=== PATIENT | male | born 1940 | race Caucasian/White ===

== ENCOUNTER 2017-02-27 05:37 | Inpatient (IN) | payer OTHER ==
[~2017-02-27] VITALS: Ht 175.3 cm; Wt 89.5 kg
[2017-02-27 07:46] VITALS: BP 130/77
[2017-02-27 07:56] VITALS: BP 130/77
[2017-02-27] MEDS ORDERED: OXYcodone IR 5MG TABLET PO PRN (10:00)
[2017-02-27] MEDS ORDERED: POLYETHYLENE GLYCOL 17 GM PACKET PO PRN (10:00)
[2017-02-27] MEDS ORDERED: ENALAPRILAT 1.25 MG/ML, 2ML IVPush PRN (10:00)
[2017-02-27] MEDS ORDERED: ACETAMINOPHEN 325 MG TABLET PO PRN (10:00)
[2017-02-27] MEDS ORDERED: ONDANSETRON 2MG/ML, 2ML IVP PRN (10:00)
[2017-02-27] MEDS ORDERED: FUROSEMIDE 20 MG/2 ML IV ONE (10:00)
[2017-02-27] MEDS ORDERED: BISACODYL 10 MG SUPP PR PRN (10:00)
[2017-02-27] MEDS ORDERED: MORPHINE SULFATE 4 MG/ML, 1ML IVPush PRN (10:00)
[2017-02-27] MEDS: PLEASE ENTER HEIGHT AND WEIGHT AND ALLERGIES MC SCH ×2 (11:23→15:58)
[2017-02-27] MEDS: DOXYCYCLINE 100MG TABLET PO SCH ×2 (12:31→20:36)
[2017-02-27] MEDS: CEFTRIAXONE PMX 1GM/50ML 50 ML IV SCH (12:44)
[2017-02-27] MEDS: HEPARIN 5,000 UNITS/ML, 1ML SQ SCH ×2 (13:15→19:00)
[2017-02-27 13:40] VITALS: BP 128/76
[2017-02-27 19:08] VITALS: BP 112/69
[2017-02-28] MEDS: CEFTRIAXONE PMX 1GM/50ML 50 ML IV SCH ×2 (00:06→14:03)
[2017-02-28 01:10] VITALS: BP 117/72
[2017-02-28] MEDS: PLEASE ENTER HEIGHT AND WEIGHT AND ALLERGIES MC SCH ×2 (02:30→10:30)
[2017-02-28] MEDS: HEPARIN 5,000 UNITS/ML, 1ML SQ SCH ×3 (03:00→19:00)
[2017-02-28 06:04] LABS: ASPARTATE AMINO TRANSFERASE 31 U/L (15-37); BLOOD UREA NITROGEN 20 mg/dL (7-18)
[2017-02-28 07:29] VITALS: BP 120/71
[2017-02-28] MEDS: DOXYCYCLINE 100MG TABLET PO SCH ×2 (08:02→19:55)
[2017-02-28] MEDS: SENNA/DOCUSATE TABLET PO SCH (08:02)
[2017-02-28] MEDS ORDERED: FUROSEMIDE 20 MG/2 ML IV ONE (09:30)
[2017-02-28 13:13] VITALS: BP 109/70
[2017-02-28] MEDS ORDERED: MAGNESIUM CITRATE 300ML ORAL SOL PO ONE (13:30)
[2017-02-28] MEDS: GUAIFENESIN ER 600 MG TABLET PO SCH ×2 (14:26→19:55)
[2017-02-28 19:15] VITALS: BP 131/76
[2017-03-01] MEDS: CEFTRIAXONE PMX 1GM/50ML 50 ML IV SCH ×2 (00:51→13:35)
[2017-03-01 02:00] VITALS: BP 117/67
[2017-03-01] MEDS: HEPARIN 5,000 UNITS/ML, 1ML SQ SCH ×3 (03:00→20:52)
[2017-03-01 06:38] VITALS: BP 118/72
[2017-03-01] MEDS: GUAIFENESIN ER 600 MG TABLET PO SCH ×2 (10:25→20:52)
[2017-03-01] MEDS: SENNA/DOCUSATE TABLET PO SCH (10:25)
[2017-03-01] MEDS: FUROSEMIDE 20 MG TABLET PO SCH (10:25)
[2017-03-01] MEDS: DOXYCYCLINE 100MG TABLET PO SCH ×2 (10:25→20:53)
[2017-03-01 12:21] VITALS: BP 120/74
[2017-03-01 19:34] VITALS: BP 110/64
[2017-03-02] MEDS: CEFTRIAXONE PMX 1GM/50ML 50 ML IV SCH ×2 (00:41→11:05)
[2017-03-02 02:40] VITALS: BP 121/74
[2017-03-02] MEDS: HEPARIN 5,000 UNITS/ML, 1ML SQ SCH ×2 (05:27→12:55)
[2017-03-02 06:34] VITALS: BP 118/72
[2017-03-02] MEDS: SENNA/DOCUSATE TABLET PO SCH (09:00)
[2017-03-02] MEDS: DOXYCYCLINE 100MG TABLET PO SCH (11:04)
[2017-03-02] MEDS: FUROSEMIDE 20 MG TABLET PO SCH (11:05)
[2017-03-02] MEDS: GUAIFENESIN ER 600 MG TABLET PO SCH (11:05)
[2017-03-02] MEDS ORDERED: ENALAPRILAT 1.25 MG/ML, 2ML IVPush PRN (12:09)
[2017-03-02] MEDS ORDERED: SODIUM CHLORIDE INHALATION 7%, 4 ML NPPB ONE (12:30)
[2017-03-02 12:32] VITALS: BP 118/78
[2017-03-02] MEDS ORDERED: CEFD300C37 PO (16:01)
[2017-03-02] MEDS ORDERED: DOXY100T PO (16:01)
[2017-03-02] MEDS ORDERED: LACT1CAP24 PO (16:01)
== END 2017-03-02 16:56 | disposition home or self-care (01) | DRG 871 ==
LOC: 3NE 07:32
PROVIDERS: ADMIT Family Medicine; ATTEND Internal Medicine
DX: A41.9 Sepsis, unspecified organism (principal); J18.9 Pneumonia, unspecified organism; J96.01 Acute respiratory failure with hypoxia; K40.20 Bilateral inguinal hernia, without obstruction or gangrene, not specified as recurrent; K59.00 Constipation, unspecified; K82.8 Other specified diseases of gallbladder; Z59.0 Homelessness; Z88.0 Allergy status to penicillin
CPT/HCPCS: 36415; 80053; 80061; 81001; 83036; 83605; 83735; 83880; 84439; 84443; 85025; 87040; 94640; J0696; J1644; J1940

== ENCOUNTER 2019-09-18 13:26 | Emergency (ER) ==
[~2019-09-18] VITALS: Ht 172.7 cm; Wt 77.2 kg
[~2019-09-18 13:26] MED LIST: CEFD300C37 PO; DOXY100T PO; LACT1CAP24 PO
--- NOTE | 2019-09-18 13:35 | NUR ---
Patient brought in by EMS reports Left flank pain that radiates up his back. Pain has got progressively worse. Painful urination with urgency. Denies any CP or difficulty breathing. at bedside.
[2019-09-18] MEDS ORDERED: OXYcodone/APAP 5/325MG TABLET PO ONE (14:00)
[2019-09-18] MEDS ORDERED: ONDANSETRON ODT 4 MG PO ONE (14:00)
[2019-09-18] MEDS ORDERED: KETOROLAC 30 MG/1 ML IM ONE (14:00)
[2019-09-18] MEDS ORDERED: ONDANSETRON ODT 4 MG ONE (14:17)
[2019-09-18] MEDS ORDERED: OXYcodone/APAP 5/325MG TABLET ONE (14:17)
[2019-09-18] MEDS ORDERED: KETOROLAC 60 MG/2 ML ONE (14:17)
--- NOTE | 2019-09-18 15:29 | NUR ---
Patient resting in bed. NAD noted. Provider at bedside discussing results.
--- NOTE | 2019-09-18 17:00 | NUR ---
Patient was being discharged and began complaining of Left sided pain with inspiration. Provider informed and orders received. Patient back in bed attached to monitors (Cardiac, O2 and BP). at bedside.
[2019-09-18 17:17] LABS: MEAN CORPUSCULAR HEMOGLOBIN 32.1 pg (27.5-34.5); MEAN CORPUSCULAR HGB CONC 33.3 g/dL (33.2-36.2); MEAN CORPUSCULAR VOLUME 96.6 fL (81-97); MEAN PLATELET VOLUME 8.9 fL (7.4-10.4); PLATELET COUNT 207 x10^3/uL (130-400); RED CELL DISTRIBUTION WIDTH 13.6 % (9.4-14.8)
[2019-09-18 17:27] LABS: ALBUMIN 3.5 g/dL (3.4-5.0); ANION GAP 8 mmol/L (5-15); CALCIUM 9.2 mg/dL (8.5-10.1); CHLORIDE 108 mmol/L (98-107); CREATININE 1.33 mg/dL (0.7-1.3)
[2019-09-18 17:30] LABS: TROPONIN I < 0.015 ng/mL (0.000-0.045)
[2019-09-18 17:34] LABS: BASOPHILS # (AUTO) 0.01 x10^3/uL (0-0.1); BASOPHILS % (AUTO) 0 % (0-1); EOSINOPHILS % (AUTO) 0 % (1-7); LYMPHOCYTES # (AUTO) 0.66 x10^3/uL (1-3.4); LYMPHOCYTES % (AUTO) 5 % (22-44); MD SCAN; MONOCYTES # (AUTO) 1.02 x10^3/uL (0.2-0.8); MONOCYTES % (AUTO) 7 % (2-9); NEUTROPHILS # (AUTO) 13.09 x10^3/uL (1.8-6.8); NEUTROPHILS % (AUTO) 89 % (42-75)
[2019-09-18 17:38] VITALS: BP 112/59
[2019-09-18] MEDS ORDERED: CEFTRIAXONE PMX 1GM/50ML 50 ML IVPB ONE (18:00)
[2019-09-18] MEDS ORDERED: DOXYCYCLINE 100MG TABLET ONE (18:15)
--- NOTE | 2019-09-18 18:23 | NUR ---
Patient resting in bed. NAD noted
[2019-09-18] MEDS ORDERED: DOXYCYCLINE 100MG TABLET PO ONE (18:30)
[2019-09-18] MEDS ORDERED: SODIUM CHLORIDE FLUSH 10ML SYR IVF ONE (18:30)
--- NOTE | 2019-09-18 18:41 | NUR ---
Patient discharged home, discharge instructions provided. All questions and concerns addressed. Ambulatory with slow steady gait. All pt belongings were with patient and he left with and son.
== END 2019-09-18 18:43 | disposition home or self-care (01) ==
LOC: ED 15:08
DX: J18.1 Lobar pneumonia, unspecified organism (principal); M51.34 Other intervertebral disc degeneration, thoracic region; Z87.891 Personal history of nicotine dependence
CPT/HCPCS: 36415; 71045; 72072; 72110; 80048; 82040; 84484; 85025; 93005; 96372; 99283; J1885; 99284

== ENCOUNTER 2021-05-15 11:23 | Emergency (ER) | payer OTHER ==
[~2021-05-15] VITALS: Ht 180.3 cm; Wt 70.0 kg
--- NOTE | 2021-05-15 11:32 | NUR ---
THIS IS A 81 YO M BIB EMS S/P [employer] PLACED PT ON HOLD FOR SI. PER EMS PT WAS SITTING ON THE SIDE OF THE ROAD TRYING TO GET OUT OF THE STREET AND CROSSING THE ROAD. PT DENIES SI/HI. DENIES DESIRE TO JUMP IN FRONT OF CAR. STATES "I WAS TRYING TO CROSS THE ROAD". PT CALM AND COOPERATIVE. VSS, TARIQ. AND LINETTE HARRISON AT BEDSIDE FOR EVAL.
--- NOTE | 2021-05-15 11:51 | NUR ---
MED DANETTE FROM PHARMACY.
[2021-05-15] MEDS ORDERED: TRIAMCINOLONE OINT 0.1%, 15GM TP ONE (12:00)
[2021-05-15] MEDS ORDERED: TRIAMCINOLONE CRM 0.1%, 15GM TP ONE (13:00)
--- NOTE | 2021-05-15 13:59 | NUR ---
pt still eating, will be dc after. as
[2021-05-15 14:24] VITALS: BP 141/71
== END 2021-05-15 14:26 | disposition home or self-care (01) ==
LOC: ED 11:54
DX: Z00.00 Encounter for general adult medical examination without abnormal findings (principal); Z87.891 Personal history of nicotine dependence
CPT/HCPCS: 99281

== ENCOUNTER 2021-05-19 09:00 | Emergency (ER) | payer OTHER ==
[~2021-05-19] VITALS: Ht 180.3 cm; Wt 61.8 kg
--- NOTE | 2021-05-19 09:05 | NUR ---
REPORT RC'VD FROM EMS. PT CURRENTLY IN SHOWER ROOM WITH PHYSICIST SOLID EARTH BEING DECONTAMINATED FOR BODY LICE ALL OVER. PER EMS, PT WAS WALKING OUTSIDE RETIREMENT WHEN HE BECAME DIZZY AND FELL. NO INJURIES SUSTAINED. BP 80/56 ON SCENE; PT WAS GIVEN 300ML NS EN ROUTE WITH BP IMPROVING TO 90/60. EMS REPORTED PT A&OX4 BUT ALSO SAYING NONSENSE LIKE, "THERE'S CARTS ALL OVER!". PT DENIES MEDICAL HX BUT HAS 3 HOSPITAL WRISTBANDS ON. OTHER VSS: BS 160, HR 90s SR EKG UNREMARKABLE, 96% ON RA.
--- NOTE | 2021-05-19 09:15 | NUR ---
PT TAKEN TO ROOM VIA WC AFTER SHOWER/DECON. ON ALL MONITORS. BELONGINGS DOUBLE BAGGED IN ROOM. PT REPORTS HE'S "FEELING A LOT BETTER".
--- NOTE | 2021-05-19 09:35 | NUR ---
PT ALERT, CONVERSING WITH STAFF, OX4, ANSWERS QUESTIONS APPROPRIATELY. OCCASIONALLY MENTIONS "THE FOREST AND TREES AROUND ME". STATES HE HASN'T EATEN MUCH LATELY. ER PA WAS IN TO SEE PT.
--- NOTE | 2021-05-19 09:57 | NUR ---
PER ER PA, WILL HOLD OFF ON IVF FOR NOW, WILL GIVE PT ORAL FLUIDS & MEAL TRAY AT THIS TIME.
[2021-05-19 10:09] LABS: BASOPHILS % (AUTO) 1 % (0-1); EOSINOPHILS % (AUTO) 4 % (1-7); LYMPHOCYTES % (AUTO) 12 % (22-44); MEAN CORPUSCULAR HEMOGLOBIN 31.3 pg (27.5-34.5); MEAN CORPUSCULAR HGB CONC 34.4 g/dL (33.2-36.2); MEAN PLATELET VOLUME 7.9 fL (7.4-10.4); MONOCYTES % (AUTO) 8 % (2-9); NEUTROPHILS % (AUTO) 76 % (42-75); PLATELET COUNT 228 x10^3/uL (130-400); RED BLOOD COUNT 4.28 x10^6/uL (4.38-5.82); RED CELL DISTRIBUTION WIDTH 13.6 % (9.4-14.8)
[2021-05-19 10:23] LABS: ALANINE AMINOTRANSFERASE 27 U/L (12-78); ALBUMIN 3.1 g/dL (3.4-5.0); ANION GAP 7 mmol/L (5-15); CALCIUM 9.2 mg/dL (8.5-10.1); CHLORIDE 110 mmol/L (98-107); CREATININE 1.38 mg/dL (0.7-1.3)
--- NOTE | 2021-05-19 10:35 | NUR ---
PT SITTING UP IN GURNEY, ATE A FULL MEAL AND DRINKING MULTIPLE CUPS OF WATER/JUICE. NO S/S OF DISTRESS.
[2021-05-19 10:38] LABS: ALKALINE PHOSPHATASE 78 U/L (45-117); BILIRUBIN,TOTAL 1.2 mg/dL (0.2-1.0)
[2021-05-19 11:04] VITALS: BP 125/73
--- NOTE | 2021-05-19 11:49 | NUR ---
CLEAN SCRUBS & HOSPITAL SOCKS PROVIDED TO PT. BELONGINGS RETURNED TO PT (IN DOUBLE BAG). D/C INSTRUCTIONS RV'WD WITH PT. PT STABLE ON DISCHARGE. ASSISTED PT OUT OF ED VIA WC. CAB VOUCHER PROVIDED BACK TO [facility] ON [address].
== END 2021-05-19 11:50 | disposition home or self-care (01) ==
LOC: ED 10:54
DX: R55 Syncope and collapse (principal); R00.0 Tachycardia, unspecified; R42 Dizziness and giddiness; R07.9 Chest pain, unspecified; Z59.0 Homelessness
CPT/HCPCS: 36415; 71045; 80053; 83735; 85025; 93005; 99283

== ENCOUNTER 2021-05-21 16:38 | Emergency (ER) | payer OTHER ==
[~2021-05-21] VITALS: Ht 175.3 cm; Wt 62.0 kg
--- NOTE | 2021-05-21 16:50 | NUR ---
PT BIB [facility] AFTER BEING FOUND BY LONG TERM STAFF ON THE FLOOR OF THE SHOWER. HE DENIES ANY HEAD OR NECK PAIN. PT PLACED ON MONITOR AND GIVEN BLANKETS/CALL LIGHT. WAITING FOR MD EXAM.
--- NOTE | 2021-05-21 17:06 | NUR ---
RECEIVED REPORT FROM JABIER NELSON. PT RESTING ON JOVONAMIRA. NADN. MCCABE.
[2021-05-21 18:14] LABS: ALANINE AMINOTRANSFERASE 23 U/L (12-78); ANION GAP 7 mmol/L (5-15); CALCIUM 9.1 mg/dL (8.5-10.1); CHLORIDE 115 mmol/L (98-107); CREATININE 1.32 mg/dL (0.7-1.3)
[2021-05-21 18:17] LABS: ALKALINE PHOSPHATASE 75 U/L (45-117); BILIRUBIN,TOTAL 1.2 mg/dL (0.2-1.0); TOTAL PROTEIN 6.7 g/dL (6.4-8.2); TROPONIN I < 0.015 ng/mL (0.000-0.045)
--- NOTE | 2021-05-21 18:18 | NUR ---
PT PROVIDED W/ PO FLUIDS FOR PO CHALLENGE. PT AWARE OF NEED FOR UA SAMPLE. URINAL LEFT AT BEDSIDE.
--- NOTE | 2021-05-21 19:07 | NUR ---
PT STATES HE CANNOT URINATE AT THIS TIME. EDUCATED ON POSSIBLE NEED FOR STRAIGHT CATH UA. PT REFUSING STRAIGHT CATH AND STATES HE WILL ATTEMPT A UA SAMPLE.
--- NOTE | 2021-05-21 19:18 | NUR ---
PT ATTEMPTED UA SAMPLE W/O SUCCESS. BLADDER SCANNER SHOWS 198 ML IN BLADDER. PT CONTINUES TO REFUSE STRAIGHT CATH.
[2021-05-21 19:48] LABS: BASOPHILS % (AUTO) 1 % (0-1); EOSINOPHILS % (AUTO) 2 % (1-7); LYMPHOCYTES % (AUTO) 10 % (22-44); MEAN CORPUSCULAR HEMOGLOBIN 31.4 pg (27.5-34.5); MEAN CORPUSCULAR HGB CONC 34.2 g/dL (33.2-36.2); MEAN PLATELET VOLUME 8.5 fL (7.4-10.4); MONOCYTES % (AUTO) 7 % (2-9); NEUTROPHILS % (AUTO) 80 % (42-75); PLATELET COUNT 235 x10^3/uL (130-400); RED BLOOD COUNT 4.38 x10^6/uL (4.38-5.82); RED CELL DISTRIBUTION WIDTH 13.9 % (9.4-14.8)
--- NOTE | 2021-05-21 20:11 | NUR ---
PT ABLE TO PROVIDE UA SAMPLE. UA COLLECTED, LABELED, AND SENT TO LAB.
[2021-05-21 20:31] LABS: MICROSCOPIC INDICATED
--- NOTE | 2021-05-21 20:47 | NUR ---
PT RESTING ON GURNEY. NADN. MCCABE.
--- NOTE | 2021-05-21 21:16 | NUR ---
REPORT GIVEN TO ESTEPHANIE MILLER RN.
--- NOTE | 2021-05-21 21:17 | NUR ---
RECEIVED REPORT FROM ALFRED EUGENE, TRANSFER OF CARE.
--- NOTE | 2021-05-21 21:37 | NUR ---
PT AMBULATED TO BATHROOM AND BACK WITH STEADY GAIT. ROADTEST ESUCCESSFUL. PT GIVEN YELLOW NON SLIP SOCKS TO WALK
[2021-05-21 22:23] VITALS: BP 120/74
--- NOTE | 2021-05-21 22:40 | NUR ---
Patient/Caregiver given discharge instructions and they have confirmed that they understand the instructions. Patient ambulatory with steady gait. NAD, all questions answered appropriately, denies additional needs at this time. No personal belongings left in room after discharge. PT GIVEN SCRUBS BECAUSE HE HAD NO CLOTHES. GIVEN NON SLIP SOCKS. GIVEN TAXI VOUCHER TO [facility].
== END 2021-05-21 22:42 | disposition home or self-care (01) ==
LOC: ED 17:20
DX: R53.1 Weakness (principal)
CPT/HCPCS: 36415; 71045; 80053; 81001; 84484; 85025; 93005; 99283; 99284

== ENCOUNTER 2021-05-23 09:00 | Inpatient (IN) | payer OTHER ==
[~2021-05-23] VITALS: Ht 172.7 cm; Wt 63.4 kg
--- NOTE | 2021-05-23 09:10 | NUR ---
LATE ENTRY FOR 909: PT BIBA FOR GL[facility] THIS AM, REPORT TAKEN FROM EMS. PT STATES HE TRIPPED AND THEN FELL, DENIES SYNCOPE/PRESYNCOPAL SX, DENIES LOC, DENIES MIDLINE CERVICAL TENDERNESS. HX FREQUENT FALLS. NEURO INTACT, NO FOCAL WEAKNESS. DRIED BLOOD RIGHT HEAD, PT STATES THIS WAS FROM FALL THIS AM. ALL MONITORS IN PLACE. EKG TAKEN ON ARRIVAL BY EDT. PT IN GOWN. BLANKETS PROVIDED. ALL MONITORS IN PLACE. PT IS SINUS ANIA RATE 50'S ON OB GYN PHYSICIAN ASSISTANT, NO ECTOPY NOTED. PT HAS HX BODY LICE, NONE NOTED ON ASSESSMENT. CONTACT PRECAUTIONS IN PLACE. AWAITING MD AND ORDERS.
[2021-05-23] MEDS ORDERED: SODIUM CHLORIDE FLUSH 10ML SYR IVF ONE (10:00)
[2021-05-23] MEDS ORDERED: SODIUM CHLORIDE 0.9% 1,000ML IVBOLUS ONE (10:00)
--- NOTE | 2021-05-23 10:00 | NUR ---
PT RESTING ON GURMAJOR, A&O, RESPS EVEN AND UNLABORED. NO COMPLAINT AT THIS TIME.
[2021-05-23 10:17] LABS: BASOPHILS % (AUTO) 1 % (0-1); EOSINOPHILS % (AUTO) 3 % (1-7); LYMPHOCYTES % (AUTO) 11 % (22-44); MEAN CORPUSCULAR HEMOGLOBIN 31.2 pg (27.5-34.5); MEAN CORPUSCULAR HGB CONC 34.6 g/dL (33.2-36.2); MEAN PLATELET VOLUME 8.1 fL (7.4-10.4); MONOCYTES % (AUTO) 7 % (2-9); NEUTROPHILS % (AUTO) 79 % (42-75); PLATELET COUNT 199 x10^3/uL (130-400); RED BLOOD COUNT 3.92 x10^6/uL (4.38-5.82); RED CELL DISTRIBUTION WIDTH 13.8 % (9.4-14.8)
[2021-05-23 10:27] LABS: ALBUMIN 2.7 g/dL (3.4-5.0); ANION GAP 6 mmol/L (5-15); CALCIUM 8.5 mg/dL (8.5-10.1); CHLORIDE 105 mmol/L (98-107)
[2021-05-23 10:30] LABS: ALANINE AMINOTRANSFERASE 24 U/L (12-78); ALKALINE PHOSPHATASE 67 U/L (45-117); BILIRUBIN,TOTAL 1.3 mg/dL (0.2-1.0); TOTAL PROTEIN 6.1 g/dL (6.4-8.2)
--- NOTE | 2021-05-23 11:00 | NUR ---
PT HAS LARGE AMT DRIED BLOOD TO RIGHT FOREHEAD, THOROUGHLY IRRIGATED BY EDT. SMALL ABRAISION NOTED TO RIGHT FOREHEAD S/P IRRIATION, NO LACERTATION NOTED. PT STATES LAST TDAP WAS <5 YRS AGO. LAW NOTIFIED.
--- NOTE | 2021-05-23 11:56 | NUR ---
PT RESTING ON GURNEY, AWAKE, ALERT, RESPS EVEN AND UNLABORED. SINUS ANIA ON DIRECTOR OF CONTRACTS WITH NO ECTOPY, RATE 50'S. ALL RESULTS BACK, CHART UP FOR RECHECK, AWAITING MD AND DISPO.
--- NOTE | 2021-05-23 13:29 | NUR ---
this RN went to discharge pt, pt states he wants to be admitted. MD Estrada had previously offered and pt has changed his mind. MD notified. RN anticipating admit orders. all monitors in place . sinus ashley on cardaic monitor rate 50s with no ectopy. pt a&o, resps even and unlabored, nadn.
--- NOTE | 2021-05-23 14:09 | NUR ---
report called to JABIER Frye. receiving RN notified pt has reported hx lice, no lice found on pt. pt has been undressed, head cleansed thoroughly for laceration, clothing and blankets examined, no lice visualized. receiving RN aware.
[2021-05-23 14:54] VITALS: BP 142/70
[2021-05-23] MEDS ORDERED: DOCUSATE 100 MG CAPSULE PO PRN (18:00)
[2021-05-23] MEDS ORDERED: ENALAPRILAT 1.25 MG/ML, 2ML IVPush PRN (18:00)
[2021-05-23] MEDS ORDERED: MELATONIN 5 MG TABLET PO PRN (18:00)
[2021-05-23 19:55] VITALS: BP 115/67
[2021-05-23] MEDS: D5%-0.45% NACL 1,000 ML IV SCH (22:17)
[2021-05-24] MEDS: PIPERONYL BUTOXIDE/PYRETHRINS 4OZ. SHAMPOO TP SCH
[2021-05-24 00:40] VITALS: BP 107/64
[2021-05-24 06:47] LABS: BASOPHILS % (AUTO) 1 % (0-1); EOSINOPHILS % (AUTO) 10 % (1-7); LYMPHOCYTES % (AUTO) 21 % (22-44); MEAN CORPUSCULAR HEMOGLOBIN 31.3 pg (27.5-34.5); MEAN CORPUSCULAR HGB CONC 34.7 g/dL (33.2-36.2); MEAN PLATELET VOLUME 8.3 fL (7.4-10.4); MONOCYTES % (AUTO) 8 % (2-9); NEUTROPHILS % (AUTO) 60 % (42-75); PLATELET COUNT 186 x10^3/uL (130-400); RED BLOOD COUNT 3.71 x10^6/uL (4.38-5.82); RED CELL DISTRIBUTION WIDTH 13.8 % (9.4-14.8)
[2021-05-24 07:00] LABS: ANION GAP 7 mmol/L (5-15); CALCIUM 8.1 mg/dL (8.5-10.1); CHLORIDE 107 mmol/L (98-107); CREATININE 1.02 mg/dL (0.7-1.3)
[2021-05-24 07:49] VITALS: BP 113/67
[2021-05-24] MEDS: SENNA/DOCUSATE TABLET PO SCH (09:42)
[2021-05-24 12:08] VITALS: BP 120/65
[2021-05-24] MEDS: D5%-0.45% NACL 1,000 ML IV SCH (14:14)
[2021-05-24 18:34] LABS: MICROSCOPIC NOT IND
[2021-05-24 19:45] VITALS: BP 134/81
[2021-05-25 00:13] VITALS: BP 116/65
[2021-05-25] MEDS: D5%-0.45% NACL 1,000 ML IV SCH (01:01)
[2021-05-25 02:53] LABS: CLOSTRIDIUM DIFFICILE ANTIGEN NEGATIVE; CLOSTRIDIUM DIFFICILE TOXIN NEGATIVE (Negative)
[2021-05-25 04:52] LABS: BASOPHILS % (AUTO) 1 % (0-1); EOSINOPHILS % (AUTO) 9 % (1-7); LYMPHOCYTES % (AUTO) 15 % (22-44); MEAN CORPUSCULAR HEMOGLOBIN 31.5 pg (27.5-34.5); MEAN CORPUSCULAR HGB CONC 34.6 g/dL (33.2-36.2); MEAN PLATELET VOLUME 8.5 fL (7.4-10.4); MONOCYTES % (AUTO) 7 % (2-9); NEUTROPHILS % (AUTO) 68 % (42-75); PLATELET COUNT 188 x10^3/uL (130-400)
[2021-05-25 05:12] LABS: ANION GAP 6 mmol/L (5-15); CHLORIDE 110 mmol/L (98-107)
[2021-05-25 05:15] LABS: % IRON SATURATION 13 % (20-55); CREATININE 0.99 mg/dL (0.7-1.3); IRON LEVEL 35 mcg/dL (65-175); TOTAL IRON BINDING CAPACITY 263 mcg/dL (250-450)
[2021-05-25] MEDS: SENNA/DOCUSATE TABLET PO SCH (07:18)
[2021-05-25 07:46] VITALS: BP 129/76
[2021-05-25 12:14] VITALS: BP 135/72
[2021-05-25] MEDS: HEPARIN 5,000 UNITS/ML, 1ML SQ SCH (14:29)
[2021-05-25 19:01] VITALS: BP 129/68
[2021-05-26 00:45] VITALS: BP 124/74
[2021-05-26] MEDS: HEPARIN 5,000 UNITS/ML, 1ML SQ SCH ×2 (02:17→16:34)
[2021-05-26 08:16] LABS: ANION GAP 6 mmol/L (5-15); CALCIUM 8.7 mg/dL (8.5-10.1); CHLORIDE 106 mmol/L (98-107); CREATININE 1.04 mg/dL (0.7-1.3)
[2021-05-26 08:20] VITALS: BP 134/65
[2021-05-26] MEDS: SENNA/DOCUSATE TABLET PO SCH (09:24)
[2021-05-26 12:01] VITALS: BP 124/79
[2021-05-26 20:09] VITALS: BP 101/68
[2021-05-27 02:23] VITALS: BP 120/71
[2021-05-27] MEDS: HEPARIN 5,000 UNITS/ML, 1ML SQ SCH ×2 (04:37→16:50)
[2021-05-27] MEDS: SENNA/DOCUSATE TABLET PO SCH (09:00)
[2021-05-27 09:25] VITALS: BP 101/61
[2021-05-27 14:48] VITALS: BP 107/60
[2021-05-27] MEDS ORDERED: MAGNESIUM HYDROXIDE 8%, 30ML UDC PO PRN (18:30)
[2021-05-27 20:13] VITALS: BP 112/82
[2021-05-28 02:13] VITALS: BP 122/78
[2021-05-28] MEDS: HEPARIN 5,000 UNITS/ML, 1ML SQ SCH ×2 (04:57→16:30)
[2021-05-28 05:16] LABS: BASOPHILS % (AUTO) 1 % (0-1); EOSINOPHILS % (AUTO) 14 % (1-7); LYMPHOCYTES % (AUTO) 22 % (22-44); MEAN CORPUSCULAR HEMOGLOBIN 31.2 pg (27.5-34.5); MEAN CORPUSCULAR HGB CONC 34.3 g/dL (33.2-36.2); MEAN PLATELET VOLUME 8.4 fL (7.4-10.4); MONOCYTES % (AUTO) 8 % (2-9); NEUTROPHILS % (AUTO) 55 % (42-75); PLATELET COUNT 255 x10^3/uL (130-400); RED BLOOD COUNT 4.09 x10^6/uL (4.38-5.82); RED CELL DISTRIBUTION WIDTH 14.5 % (9.4-14.8)
[2021-05-28 05:29] LABS: ANION GAP 5 mmol/L (5-15); CALCIUM 8.3 mg/dL (8.5-10.1); CHLORIDE 105 mmol/L (98-107); CREATININE 0.94 mg/dL (0.7-1.3)
[2021-05-28 07:11] VITALS: BP 112/62
[2021-05-28] MEDS: SENNA/DOCUSATE TABLET PO SCH (09:00)
[2021-05-28 13:09] VITALS: BP 99/53
[2021-05-28 20:16] VITALS: BP 110/57
[2021-05-29 01:56] VITALS: BP 99/50
[2021-05-29] MEDS: HEPARIN 5,000 UNITS/ML, 1ML SQ SCH (03:54)
[2021-05-29 08:05] VITALS: BP 104/52
[2021-05-29] MEDS: SENNA/DOCUSATE TABLET PO SCH (08:15)
[2021-05-29] MEDS: ENOXAPARIN 40 MG/0.4 ML SQ SCH (08:16)
[2021-05-29 12:35] VITALS: BP 122/59
[2021-05-29 20:00] VITALS: BP 92/54
[2021-05-30 02:09] VITALS: BP 119/73
[2021-05-30 07:09] VITALS: BP 136/60
[2021-05-30] MEDS: SENNA/DOCUSATE TABLET PO SCH (09:00)
[2021-05-30] MEDS: ENOXAPARIN 40 MG/0.4 ML SQ SCH (09:43)
[2021-05-30 13:41] VITALS: BP 90/62
[2021-05-30 19:48] VITALS: BP 122/65
[2021-05-31 01:34] VITALS: BP 126/78
[2021-05-31] MEDS: PIPERONYL BUTOXIDE/PYRETHRINS 4OZ. SHAMPOO TP SCH ×2 (04:00→17:19)
[2021-05-31 06:36] VITALS: BP 126/70
[2021-05-31] MEDS: ENOXAPARIN 40 MG/0.4 ML SQ SCH (08:23)
[2021-05-31] MEDS: SENNA/DOCUSATE TABLET PO SCH (08:23)
[2021-05-31 10:48] LABS: ANION GAP 6 mmol/L (5-15); CALCIUM 8.7 mg/dL (8.5-10.1); CHLORIDE 106 mmol/L (98-107); CREATININE 0.96 mg/dL (0.7-1.3)
[2021-05-31 10:58] LABS: FREE T4 (FREE THYROXINE) 0.98 ng/dL (0.76-1.46)
[2021-05-31 13:31] VITALS: BP 101/65
[2021-05-31] MEDS ORDERED: [UNRECOGNIZED DRUG - CODE] TP (16:15)
[2021-05-31 20:01] VITALS: BP 104/68
[2021-06-01 01:20] VITALS: BP 106/73
[2021-06-01 08:21] VITALS: BP 114/63
[2021-06-01] MEDS: SENNA/DOCUSATE TABLET PO SCH (09:25)
[2021-06-01] MEDS: ENOXAPARIN 40 MG/0.4 ML SQ SCH (09:25)
[2021-06-01 13:38] VITALS: BP 109/54
[2021-06-01 19:44] VITALS: BP 100/64
[2021-06-02 01:06] VITALS: BP 100/55
[2021-06-02 08:02] VITALS: BP 102/64
[2021-06-02] MEDS: SENNA/DOCUSATE TABLET PO SCH (09:18)
[2021-06-02] MEDS: ENOXAPARIN 40 MG/0.4 ML SQ SCH (09:18)
[2021-06-02 14:15] VITALS: BP 100/59
[2021-06-02 19:01] VITALS: BP 92/57
[2021-06-03 00:21] VITALS: BP 110/69
[2021-06-03 04:26] LABS: BASOPHILS % (AUTO) 1 % (0-1); EOSINOPHILS % (AUTO) 10 % (1-7); LYMPHOCYTES % (AUTO) 20 % (22-44); MEAN CORPUSCULAR HEMOGLOBIN 31.4 pg (27.5-34.5); MEAN CORPUSCULAR HGB CONC 34.3 g/dL (33.2-36.2); MEAN PLATELET VOLUME 8.5 fL (7.4-10.4); MONOCYTES % (AUTO) 7 % (2-9); NEUTROPHILS % (AUTO) 62 % (42-75); PLATELET COUNT 296 x10^3/uL (130-400); RED BLOOD COUNT 3.79 x10^6/uL (4.38-5.82); RED CELL DISTRIBUTION WIDTH 14.5 % (9.4-14.8)
[2021-06-03 04:36] LABS: ALBUMIN 2.5 g/dL (3.4-5.0); ANION GAP 8 mmol/L (5-15); CALCIUM 8.9 mg/dL (8.5-10.1); CHLORIDE 104 mmol/L (98-107)
[2021-06-03 05:05] LABS: ALANINE AMINOTRANSFERASE 43 U/L (12-78); ALKALINE PHOSPHATASE 69 U/L (45-117); BILIRUBIN,TOTAL 0.4 mg/dL (0.2-1.0); CREATININE 0.96 mg/dL (0.7-1.3); TOTAL PROTEIN 6.6 g/dL (6.4-8.2)
[2021-06-03 06:00] VITALS: BP 118/73
[2021-06-03] MEDS: SENNA/DOCUSATE TABLET PO SCH (08:59)
[2021-06-03] MEDS: CHOLECALCIFEROL 5,000u TAB PO SCH (08:59)
[2021-06-03] MEDS: ENOXAPARIN 40 MG/0.4 ML SQ SCH (08:59)
[2021-06-03] MEDS: ACETAMINOPHEN 325 MG TABLET PO PRN (11:50)
[2021-06-03] MEDS: SIMETHICONE 80 MG CHEW TAB PO PRN (12:37)
[2021-06-03 14:33] VITALS: BP 108/70
[2021-06-03 19:47] VITALS: BP 109/66
[2021-06-04 01:06] VITALS: BP 111/63
[2021-06-04 07:11] VITALS: BP 125/73
[2021-06-04] MEDS: ENOXAPARIN 40 MG/0.4 ML SQ SCH (08:22)
[2021-06-04] MEDS: SENNA/DOCUSATE TABLET PO SCH (08:22)
[2021-06-04] MEDS: CHOLECALCIFEROL 5,000u TAB PO SCH (08:22)
[2021-06-04 13:07] VITALS: BP 100/48
[2021-06-04 20:16] VITALS: BP 111/68
[2021-06-05 01:06] VITALS: BP 107/66
[2021-06-05] MEDS: CHOLECALCIFEROL 5,000u TAB PO SCH (07:54)
[2021-06-05] MEDS: SENNA/DOCUSATE TABLET PO SCH (07:54)
[2021-06-05] MEDS: ENOXAPARIN 40 MG/0.4 ML SQ SCH (07:54)
[2021-06-05 08:16] VITALS: BP 104/62
[2021-06-05] MEDS: SIMETHICONE 80 MG CHEW TAB PO PRN (12:10)
[2021-06-05 13:30] VITALS: BP 108/71
[2021-06-05 19:56] VITALS: BP 94/70
[2021-06-06 00:48] VITALS: BP 104/65
[2021-06-06] MEDS: PANTOPRAZOLE 40MG TABLET PO SCH (05:48)
[2021-06-06 06:48] VITALS: BP 96/64
[2021-06-06] MEDS: ENOXAPARIN 40 MG/0.4 ML SQ SCH (09:02)
[2021-06-06] MEDS: CHOLECALCIFEROL 5,000u TAB PO SCH (09:02)
[2021-06-06] MEDS: SENNA/DOCUSATE TABLET PO SCH (09:02)
[2021-06-06 14:00] VITALS: BP 100/54
[2021-06-06 19:07] VITALS: BP 118/74
[2021-06-07] MEDS: PIPERONYL BUTOXIDE/PYRETHRINS 4OZ. SHAMPOO TP SCH
[2021-06-07 01:22] VITALS: BP 106/69
[2021-06-07] MEDS: PANTOPRAZOLE 40MG TABLET PO SCH (05:16)
[2021-06-07 07:58] VITALS: BP 105/56
[2021-06-07] MEDS: SENNA/DOCUSATE TABLET PO SCH (10:54)
[2021-06-07] MEDS: ENOXAPARIN 40 MG/0.4 ML SQ SCH (10:54)
[2021-06-07] MEDS: CHOLECALCIFEROL 5,000u TAB PO SCH (10:54)
[2021-06-07 13:26] VITALS: BP 119/72
[2021-06-07 18:36] VITALS: BP 103/61
[2021-06-08 01:27] VITALS: BP 99/59
[2021-06-08 05:42] LABS: ANION GAP 7 mmol/L (5-15); CALCIUM 9.2 mg/dL (8.5-10.1); CHLORIDE 106 mmol/L (98-107); CREATININE 1.06 mg/dL (0.7-1.3)
[2021-06-08] MEDS: PANTOPRAZOLE 40MG TABLET PO SCH (05:46)
[2021-06-08 07:06] VITALS: BP 106/61
[2021-06-08] MEDS: SENNA/DOCUSATE TABLET PO SCH (08:19)
[2021-06-08] MEDS: ENOXAPARIN 40 MG/0.4 ML SQ SCH (08:19)
[2021-06-08] MEDS: CHOLECALCIFEROL 5,000u TAB PO SCH (08:19)
[2021-06-08 12:59] VITALS: BP 98/60
[2021-06-08 21:16] VITALS: BP 105/65
[2021-06-09 01:27] VITALS: BP 117/72
[2021-06-09] MEDS: PANTOPRAZOLE 40MG TABLET PO SCH (06:00)
[2021-06-09 07:37] VITALS: BP 115/62
[2021-06-09] MEDS: ENOXAPARIN 40 MG/0.4 ML SQ SCH (09:25)
[2021-06-09] MEDS: CHOLECALCIFEROL 5,000u TAB PO SCH (09:25)
[2021-06-09] MEDS: SENNA/DOCUSATE TABLET PO SCH (09:26)
[2021-06-09 09:33] VITALS: BP 118/56
[2021-06-09] MEDS ORDERED: PERMETHRIN CRM 5%, 60GM TP ONE (11:30)
[2021-06-09 12:43] VITALS: BP 110/50
[2021-06-09 19:31] VITALS: BP 147/70
[2021-06-10 01:40] VITALS: BP 156/86
[2021-06-10] MEDS: PANTOPRAZOLE 40MG TABLET PO SCH (06:15)
[2021-06-10 07:58] VITALS: BP 138/77
[2021-06-10] MEDS: ENOXAPARIN 40 MG/0.4 ML SQ SCH (08:03)
[2021-06-10] MEDS: CHOLECALCIFEROL 5,000u TAB PO SCH (08:03)
[2021-06-10] MEDS: SENNA/DOCUSATE TABLET PO SCH (08:04)
[2021-06-10 13:56] VITALS: BP 127/78
[2021-06-10 20:25] VITALS: BP 98/61
[2021-06-11 01:20] VITALS: BP 92/55
[2021-06-11] MEDS: PANTOPRAZOLE 40MG TABLET PO SCH (06:05)
[2021-06-11 07:13] VITALS: BP 95/55
[2021-06-11] MEDS: CHOLECALCIFEROL 5,000u TAB PO SCH (08:11)
[2021-06-11] MEDS: SENNA/DOCUSATE TABLET PO SCH (08:11)
[2021-06-11] MEDS: ENOXAPARIN 40 MG/0.4 ML SQ SCH (08:11)
[2021-06-11 14:41] VITALS: BP 101/69
[2021-06-11 20:06] VITALS: BP 101/60
[2021-06-12] MEDS: ACETAMINOPHEN 325 MG TABLET PO PRN (01:06)
[2021-06-12 01:55] VITALS: BP 117/66
[2021-06-12] MEDS: PANTOPRAZOLE 40MG TABLET PO SCH (05:05)
[2021-06-12 09:23] VITALS: BP 97/50
[2021-06-12] MEDS: CHOLECALCIFEROL 5,000u TAB PO SCH (09:49)
[2021-06-12] MEDS: SENNA/DOCUSATE TABLET PO SCH (09:49)
[2021-06-12] MEDS: ENOXAPARIN 40 MG/0.4 ML SQ SCH (09:53)
[2021-06-12 13:46] VITALS: BP 106/56
[2021-06-12 19:07] VITALS: BP 98/55
[2021-06-13 01:23] VITALS: BP 101/53
[2021-06-13] MEDS: PANTOPRAZOLE 40MG TABLET PO SCH (05:19)
[2021-06-13 05:57] LABS: CREATININE 0.96 mg/dL (0.7-1.3)
[2021-06-13 08:02] VITALS: BP 105/61
[2021-06-13] MEDS: CHOLECALCIFEROL 5,000u TAB PO SCH (08:46)
[2021-06-13] MEDS: ENOXAPARIN 40 MG/0.4 ML SQ SCH (08:46)
[2021-06-13] MEDS: SENNA/DOCUSATE TABLET PO SCH (08:46)
[2021-06-13 13:36] VITALS: BP 101/57
[2021-06-13 18:41] VITALS: BP 108/64
[2021-06-14] MEDS: PIPERONYL BUTOXIDE/PYRETHRINS 4OZ. SHAMPOO TP SCH (00:34)
[2021-06-14 01:14] VITALS: BP 100/61
[2021-06-14] MEDS: PANTOPRAZOLE 40MG TABLET PO SCH (05:23)
[2021-06-14 07:33] VITALS: BP 122/68
[2021-06-14] MEDS: CHOLECALCIFEROL 5,000u TAB PO SCH (09:29)
[2021-06-14] MEDS: SENNA/DOCUSATE TABLET PO SCH (09:29)
[2021-06-14] MEDS: ENOXAPARIN 40 MG/0.4 ML SQ SCH (09:30)
[2021-06-14 13:16] VITALS: BP 102/60
[2021-06-14 19:34] VITALS: BP 88/54
[2021-06-14 21:59] VITALS: BP 130/70
[2021-06-15 00:45] VITALS: BP 117/52
[2021-06-15] MEDS: PANTOPRAZOLE 40MG TABLET PO SCH (05:15)
[2021-06-15 07:04] VITALS: BP 132/77
[2021-06-15] MEDS: ENOXAPARIN 40 MG/0.4 ML SQ SCH (08:33)
[2021-06-15] MEDS: CHOLECALCIFEROL 5,000u TAB PO SCH (08:33)
[2021-06-15] MEDS: SENNA/DOCUSATE TABLET PO SCH (08:33)
[2021-06-15 12:36] VITALS: BP 147/77
[2021-06-15 20:41] VITALS: BP 101/60
[2021-06-16 01:47] VITALS: BP 114/55
[2021-06-16] MEDS: PANTOPRAZOLE 40MG TABLET PO SCH (05:56)
[2021-06-16 07:02] VITALS: BP 112/59
[2021-06-16 07:58] LABS: CREATININE 0.89 mg/dL (0.7-1.3)
[2021-06-16] MEDS: ENOXAPARIN 40 MG/0.4 ML SQ SCH (10:17)
[2021-06-16] MEDS: CHOLECALCIFEROL 5,000u TAB PO SCH (10:17)
[2021-06-16] MEDS: SENNA/DOCUSATE TABLET PO SCH (10:17)
[2021-06-16 12:10] VITALS: BP 104/62
[2021-06-16 19:54] VITALS: BP 97/57
[2021-06-17 02:03] VITALS: BP 138/86
[2021-06-17] MEDS: PANTOPRAZOLE 40MG TABLET PO SCH (06:16)
[2021-06-17 08:22] VITALS: BP 109/64
[2021-06-17] MEDS: ENOXAPARIN 40 MG/0.4 ML SQ SCH (09:17)
[2021-06-17] MEDS: SENNA/DOCUSATE TABLET PO SCH (09:17)
[2021-06-17] MEDS: CHOLECALCIFEROL 5,000u TAB PO SCH (09:17)
[2021-06-17 14:43] VITALS: BP 120/71
[2021-06-17 20:59] VITALS: BP 123/62
[2021-06-18 03:10] VITALS: BP 108/68
[2021-06-18] MEDS: PANTOPRAZOLE 40MG TABLET PO SCH (05:42)
[2021-06-18 07:29] VITALS: BP 127/78
[2021-06-18] MEDS: SENNA/DOCUSATE TABLET PO SCH (10:24)
[2021-06-18] MEDS: CHOLECALCIFEROL 5,000u TAB PO SCH (10:24)
[2021-06-18] MEDS: ENOXAPARIN 40 MG/0.4 ML SQ SCH (10:25)
[2021-06-18 12:07] VITALS: BP 96/51
[2021-06-18 13:28] VITALS: BP 94/49
[2021-06-18 22:05] VITALS: BP 102/54
[2021-06-19 03:55] VITALS: BP 96/57
[2021-06-19] MEDS: PANTOPRAZOLE 40MG TABLET PO SCH (06:12)
[2021-06-19 06:19] LABS: CREATININE 1.03 mg/dL (0.7-1.3)
[2021-06-19 08:50] VITALS: BP 104/58
[2021-06-19] MEDS: CHOLECALCIFEROL 5,000u TAB PO SCH (09:16)
[2021-06-19] MEDS: ENOXAPARIN 40 MG/0.4 ML SQ SCH (09:17)
[2021-06-19] MEDS: SENNA/DOCUSATE TABLET PO SCH (09:17)
[2021-06-19 13:16] VITALS: BP 109/70
[2021-06-19 19:04] VITALS: BP 102/60
[2021-06-20 01:27] VITALS: BP 129/75
[2021-06-20] MEDS: PANTOPRAZOLE 40MG TABLET PO SCH (05:57)
[2021-06-20 08:26] VITALS: BP 126/55
[2021-06-20] MEDS: CHOLECALCIFEROL 5,000u TAB PO SCH (10:05)
[2021-06-20] MEDS: ENOXAPARIN 40 MG/0.4 ML SQ SCH (10:05)
[2021-06-20] MEDS: SENNA/DOCUSATE TABLET PO SCH (10:05)
[2021-06-20 13:49] VITALS: BP 110/64
--- NOTE | 2021-06-20 17:42 | NUR ---
alan/madeleine with nsg assist in halls and up to chair for meals- green nursing activity sheet initiated Addendum: 06/20/21 at 1742 by Cora Salgado PT Amended: Links added.
[2021-06-20 20:00] VITALS: BP 100/66
[2021-06-21] MEDS: PIPERONYL BUTOXIDE/PYRETHRINS 4OZ. SHAMPOO TP SCH
[2021-06-21 02:14] VITALS: BP 103/63
[2021-06-21] MEDS: PANTOPRAZOLE 40MG TABLET PO SCH (06:00)
[2021-06-21 07:37] VITALS: BP 114/66
[2021-06-21] MEDS: CHOLECALCIFEROL 5,000u TAB PO SCH (09:12)
[2021-06-21] MEDS: SENNA/DOCUSATE TABLET PO SCH (09:12)
[2021-06-21] MEDS: ENOXAPARIN 40 MG/0.4 ML SQ SCH (09:12)
[2021-06-21 13:53] VITALS: BP 102/68
[2021-06-21 20:58] VITALS: BP 114/62
[2021-06-22 02:02] VITALS: BP 102/57
[2021-06-22] MEDS: PANTOPRAZOLE 40MG TABLET PO SCH (05:46)
[2021-06-22 07:16] VITALS: BP 116/76
[2021-06-22] MEDS: CHOLECALCIFEROL 5,000u TAB PO SCH (09:23)
[2021-06-22] MEDS: ENOXAPARIN 40 MG/0.4 ML SQ SCH (09:23)
[2021-06-22] MEDS: SENNA/DOCUSATE TABLET PO SCH (09:24)
[2021-06-22 10:53] LABS: CREATININE 1.29 mg/dL (0.7-1.3)
[2021-06-22] MEDS ORDERED: SIME80TA16 PO (11:01)
[2021-06-22 14:58] VITALS: BP 103/69
[2021-06-22 18:59] VITALS: BP 112/65
[2021-06-23 00:01] VITALS: BP 117/70
[2021-06-23] MEDS: PANTOPRAZOLE 40MG TABLET PO SCH (06:00)
[2021-06-23 08:00] VITALS: BP 104/62
[2021-06-23] MEDS: SENNA/DOCUSATE TABLET PO SCH (10:57)
[2021-06-23] MEDS: CHOLECALCIFEROL 5,000u TAB PO SCH (10:57)
[2021-06-23] MEDS: ENOXAPARIN 40 MG/0.4 ML SQ SCH (10:58)
[2021-06-23 12:56] VITALS: BP 104/61
== END 2021-06-23 17:45 | disposition home or self-care (01) | DRG 640 ==
LOC: ED 09:36 → EDIP 13:39 → 4NE 14:38 → 4NW 05-24 04:51 → 3N 06-10 01:31
PROVIDERS: ADMIT Internal Medicine; ATTEND Family Medicine
DX: R62.7 Adult failure to thrive (principal); E43 Unspecified severe protein-calorie malnutrition; R53.2 Functional quadriplegia; B85.2 Pediculosis, unspecified; D64.9 Anemia, unspecified; S00.81XA Abrasion of other part of head, initial encounter; R63.0 Anorexia; D50.9 Iron deficiency anemia, unspecified; W18.39XA Other fall on same level, initial encounter; R19.7 Diarrhea, unspecified; R53.81 Other malaise; E86.0 Dehydration; K59.00 Constipation, unspecified; I45.10 Unspecified right bundle-branch block; R29.6 Repeated falls; Z91.81 History of falling; Z75.1 Person awaiting admission to adequate facility elsewhere; Z59.0 Homelessness; Y99.8 Other external cause status; Z87.891 Personal history of nicotine dependence; Y92.89 Other specified places as the place of occurrence of the external cause; Y93.89 Activity, other specified
CPT/HCPCS: 36415; 70450; 71250; 74176; 80048; 80053; 81003; 82306; 82565; 82607; 83540; 83550; 84439; 84443; 84481; 85025; 87324; 93005; 96360; G0378; J1644; J1650; J7030